=== PATIENT | female | born 1960 | race African-American/Black ===

== ENCOUNTER 2017-11-04 15:37 | Emergency (ER) | payer SELFPAY ==
[~2017-11-04] VITALS: Ht 170.2 cm; Wt 60.0 kg
[2017-11-04] MEDS ORDERED: IBUPROFEN 600MG TABLET PO ONE (18:30)
[2017-11-04 19:50] VITALS: BP 175/105
== END 2017-11-04 19:53 | disposition home or self-care (01) ==
LOC: ER 15:49
DX: S70.12XA Contusion of left thigh, initial encounter (principal); S80.01XA Contusion of right knee, initial encounter; V03.99XA Pedestrian with other conveyance injured in collision with car, pick-up truck or van, unspecified whether traffic or nontraffic accident, initial encounter; Y93.89 Activity, other specified; Y99.8 Other external cause status; Y92.410 Unspecified street and highway as the place of occurrence of the external cause
CPT/HCPCS: 73552; 73560; 99284